=== PATIENT | female | born 1985 | race African-American/Black ===

== ENCOUNTER 2016-09-21 10:21 | Emergency (ER) | payer MEDICAID ==
[~2016-09-21] VITALS: Ht 177.8 cm; Wt 122.5 kg
[2016-09-21 10:41] VITALS: BP 145/83
[2016-09-21] MEDS ORDERED: IBUPROFEN 800 MG TAB PO ONE (11:30)
== END 2016-09-21 12:13 | disposition home or self-care (01) ==
LOC: ER 10:23
DX: S60.212A Contusion of left wrist, initial encounter (principal); X50.0XXA Overexertion from strenuous movement or load, initial encounter; Y93.89 Activity, other specified; Y99.8 Other external cause status; Y92.89 Other specified places as the place of occurrence of the external cause
CPT/HCPCS: 73110; 73130

== ENCOUNTER 2021-01-28 22:36 | Emergency (ER) | payer MEDICAID ==
[~2021-01-28] VITALS: Ht 175.3 cm; Wt 111.1 kg
[2021-01-29 00:30] VITALS: BP 156/94
== END 2021-01-29 04:30 | disposition home or self-care (01) ==
LOC: ER 22:36
DX: S83.91XA Sprain of unspecified site of right knee, initial encounter (principal); E66.9 Obesity, unspecified; Z68.36 Body mass index [BMI] 36.0-36.9, adult; X58.XXXA Exposure to other specified factors, initial encounter; Y93.89 Activity, other specified; Y92.89 Other specified places as the place of occurrence of the external cause; Y99.8 Other external cause status
CPT/HCPCS: 73562; 93971

== ENCOUNTER 2024-01-16 22:38 | Emergency (ER) | payer MEDICAID ==
[~2024-01-16] VITALS: Ht 180.3 cm; Wt 125.9 kg
[2024-01-16 23:35] LABS: Basophils # (auto) 0.1 10 ^3/uL (0-0.2); Basophils % (auto) 0.9 % (0.0-2.0); Eosinophils # (auto) 0.1 10 ^3/uL (0-0.8); Eosinophils % (auto) 1.1 % (0.0-7.0); Hematocrit 38.7 % (36.0-46.0); Hemoglobin 13.3 g/dL (12.2-16.2); Lymphocytes # (auto) 2.8 10 ^3/uL (0.4-5.4); Lymphocytes % (auto) 24.7 % (10.0-50.0); Mean Corpuscular Hemoglobin 32.8 pg (28.0-32.0); Mean Corpuscular Hgb Conc. 34.4 g/dL (32.0-36.0); Mean Corpuscular Volume 95.3 fL (80.0-100.0); Monocytes # (auto) 1.1 10 ^3/uL (0-1.3); Monocytes % (auto) 9.7 % (0.0-12.0); Neutrophils # (auto) 7.2 10 ^3/uL (1.6-8.6); Neutrophils % (auto) 63.6 % (37.0-80.0); Nucleated Red Blood Cells % 0.1 %; Platelet Count (auto) 258 10^3/uL (140-450); Red Blood Cells 4.06 10^6/uL (4.0-5.20); Red Cell Distribution Width 14.1 % (11.8-14.3); White Blood Cell 11.4 10^3/uL (4.4-10.8)
--- NOTE | 2024-01-16 23:35 | ED.PDOC ---
GI ASSESSMENT HPI Comments 38-year-old female who came to ER for abdominal pain. Patient states for the past 4 days, she has been having intermittent episodes of suprapubic abdominal pain associated bouts of nausea and vomiting. States lower abdominal pain will radiate to her back area. She denies any urinary symptoms such as dysuria or gross hematuria. Chief Complaint: Abdominal Pain Time Seen by MD: 23:35 Primary Care Provider: ZAHIDA Reviewed Notes: Nurses Notes Allergies: Coded Allergies: NO KNOWN ALLERGIES (Unverified , 04/17/14) Information Source: Patient Mode of Arrival: Ambulatory Timing: Days Duration: Since onset Prehospital treatment: None Quality: Aching Vomitus: Watery Stool: Normal Severity: Moderate Recent: None Recent Hx of: Abdominal Surgery Pain Location: Suprapubic Modifying Factors: Nothing Associated sign and symptoms: Nausea, Vomiting, Abdominal Pain Past Medical History PAST MEDICAL HISTORY: Denies Surgical History: [employer]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 Family History Family History: Reviewed,noncontributory to illness Social History Smoker: Non-Smoker Alcohol: Denies ETOH Use Drugs: Denies Drug Use Lives In: Home Constitutional: denies: chills, diaphoresis, fatigue, fever, malaise, sweats, weakness, others EENTM: denies: blurred vision, double vision, ear bleeding, ear discharge, ear drainage, ear pain, ear ringing, eye pain, eye redness, hearing loss, mouth pain, mouth swelling, nasal discharge, nose bleeding, nose congestion, nose pain, photophobia, tearing, throat pain, throat swelling, voice changes, others Respiratory: denies: cough, hemoptysis, orthopnea, SOB at rest, shortness of breath, SOB with excertion, stridor, wheezing, others Cardiovascular: denies: chest pain, dizzy spells, diaphoresis, Dyspnea on exertion, edema, irregular heart beat, left arm pain, lightheadedness, palpitations, PND, syncope, others Gastrointestinal: reports: abdominal pain, nausea, vomiting; denies: abdomen distended, blood streaked bowels, constipated, diarrhea, dysphagia, difficulty swallowing, hematemesis, melena, poor appetite, poor fluid intake, rectal bleeding, rectal pain, others Genitourinary: denies: abnormal vagina bleeding, burning, dyspareunia, dysuria, flank pain, frequency, hematuria, incontinence, pain, , vagina discharge, urgency, others Neurological: denies: dizziness, fainting, headache, left sided numbness, left sided weakness, numbness, paresthesia, pre-existing deficit, right sided numbness, right sided weakness, seizure, speech problems, tingling, tremors, weakness, others Musculoskeletal: reports: back pain; denies: gout, joint pain, joint swelling, muscle pain, muscle stiffness, neck pain, others Integumetry: denies: bruises, change in color, change in hair/nails, dryness, laceration, lesions, lumps, rash, wounds, others Allergic/Immunocompromised: denies: Difficulty Healing, Frequent Infections, Hives, Itching, others Hematologic/Lymphatic: denies: anemia, blood clots, easy bleeding, easy bruising, swollen glands, others Endocrine: denies: excessive hunger, excessive sweating, excessive thirst, excessive urination, flushing, intolerance to cold, intolerance to heat, unexplained weight gain, unexplained weight loss, others Psychiatric: denies: anxiety, bipolar disorder, depression, hopeless, panic disorder, schizophrenia, sleepless, suicidal, others Physical Exam General Appearance: No Apparent Distress, Normal HEENT: Normal ENT Inspection, Pharynx Normal, TMs Normal Neck: Full Range of Motion, Non-Tender, Normal, Normal Inspection Respiratory: Chest Non-Tender, Lungs Clear, No Accessory Muscle Use, No Respiratory Distress, Normal Breath Sounds Cardiovascular: No Edema, No JVD, No Murmur, No Gallop, Normal Peripheral Pulses, Regular Rate/Rhythm Breast Exam: Deferred Gastrointestinal: No Organomegaly, No Pulsatile Mass, Normal Bowel Sounds, Soft, Suprapubic, Tenderness Genitalia: Deferred Pelvic: Deferred Rectal: Deferred Extremities: No calf tenderness, Normal capillary refill, Normal inspection, Normal range of motion, Non-tender, No pedal edema Musculoskeletal : Apperance: Normal Neurologic: Alert, speech therapist II-XII nml as Tested, No Motor Deficits, Normal Affect, Normal Mood, No Sensory Deficits Cerebellar Function: Normal Reflexes: Normal Skin: Dry, Normal Color, Warm Lymphatic: No Adenopathy Was a procedure done? Was a procedure done?: No GI differential Dx Differential Diagnosis: Diverticular disease, Gastritis/PUD, Gastroenteritis, Pancreatitis, UTI, Urolithiasis X-Ray, Labs, Meds, VS Vital Signs Date Time Temp Pulse Resp B/P (MAP) Pulse Ox O2 Delivery O2 Flow Rate FiO2 01/17/24 00:33 97.4 95 16 154/74 (100) 100 97.4 01/16/24 23:06 98.6 105 16 153/79 (103) 98 Lab Test 01/16/24 23:25 01/16/24 23:07 Range/Units White Blood Count 11.4 H 4.4-10.8 10^3/uL Red Blood Count 4.06 4.0-5.20 10^6/uL Hemoglobin 13.3 12.2-16.2 g/dL Hematocrit 38.7 36.0-46.0 % Mean Corpuscular Volume 95.3 80.0-100.0 fL Mean Corpuscular Hemoglobin 32.8 H 28.0-32.0 pg Mean Corpuscular Hemoglobin Concent 34.4 32.0-36.0 g/dL Red Cell Distribution Width 14.1 11.8-14.3 % Platelet Count 258 140-450 10^3/uL Mean Platelet Volume 8.2 6.9-10.8 fL Neutrophils (%) (Auto) 63.6 37.0-80.0 % Lymphocytes (%) (Auto) 24.7 10.0-50.0 % Monocytes (%) (Auto) 9.7 0.0-12.0 % Eosinophils (%) (Auto) 1.1 0.0-7.0 % Basophils (%) (Auto) 0.9 0.0-2.0 % Neutrophils # (Auto) 7.2 1.6-8.6 10 ^3/uL Lymphocytes # (Auto) 2.8 0.4-5.4 10 ^3/uL Monocytes # (Auto) 1.1 0-1.3 10 ^3/uL Eosinophils # (Auto) 0.1 0-0.8 10 ^3/uL Basophils # (Auto) 0.1 0-0.2 10 ^3/uL Nucleated Red Blood Cells 0.1 % Sodium Level 138 136-145 mmol/L Potassium Level 3.8 3.5-5.1 mmol/L Chloride Level 107 98-107 mmol/L Carbon Dioxide Level 28 20-31 mmol/L Anion Gap 3 L 5-15 Blood Urea Nitrogen 12 9-23 mg/dL Creatinine 1.05 H 0.550-1.02 mg/dL Glomerular Filtration Rate Calc 69 >90 mL/min BUN/Creatinine Ratio 11.4 10.0-20.0 Serum Glucose 118 H 74-106 mg/dL Calcium Level 9.7 8.7-10.4 mg/dL Urine Color Yellow Yellow Urine Clarity Turbid H Clear Urine pH 6.0 5.0-9.0 Urine Specific [place] 1.048 H 1.001-1.035 Urine Protein 1+ H Negative Urine Ketones 1+ H Negative Urine Blood Negative Negative /uL Urine Nitrite Negative Negative Urine Bilirubin Negative Negative Urine Urobilinogen 3 H Negative mg/dL Urine Leukocyte Esterase 2+ Negative /uL Urine RBC 10 0 - 4 /hpf Urine WBC 13 0 - 5 /hpf Urine Squamous Epithelial Cells Mod <5 /hpf Urine Bacteria Few H None Seen /hpf Urine Mucus Few None Seen Urine Glucose Normal Normal mg/dL Urine Test Positive Negative Current Medications Medications (Trade) Dose Ordered Sig/Anusha Route Start Time Stop Time Status Last Admin Sodium Chloride 1,000 ml @ 1,000 mls/hr Q1H ONCE IV 01/16/24 23:30 01/17/24 00:29 DC 01/17/24 00:22 Famotidine (Pepcid Injection) 20 mg ONCE ONCE IV 01/16/24 23:30 01/16/24 23:31 DC 01/17/24 00:22 Time of 1ST Reevaluation: 23:33 Reevaluation 1ST: Unchanged Patient Education/Counseling: Diagnosis, Treatment Family Education/Counseling: No Family Present Departure 1 Departure Time of Disposition: 00:37 (Patient with a positive test we will discharge patient home) Impression: Primary Impression: Qualified Codes: Z3A.01 - Less than 8 weeks gestation of Disposition: HOME / SELF CARE / HOMELESS Condition: Stable Referrals: RENAY LEE DO Additional Instructions: You are . You were referred to our [employer]LECTRICAL [employer]. Please call for an appointment. If your symptoms worsen or you have any other concerns then please return to the ER. Discharged With: Self Critical Care Note Critical Care Time?: No Stability Stability form required: No Heart Score Heart Score: Heart Score Response (Comments) Value History N/A 0 EKG N/A 0 Age N/A 0 Risk Factors N/A 0 Troponin N/A 0 Total 0 I personally scribed for CHATA HOUSTON MD ([email or web address]) on 01/16/24 at 23:35. Electronically submitted by Primo King ([email or web address]). CHATA HOUSTON MD Jan 16, 2024 23:35
[2024-01-16 23:42] LABS: Urine Bacteria FEW /hpf (None Seen); Urine Blood Negative /uL (Negative); Urine Clarity Turbid (Clear); Urine Color Yellow (Yellow); Urine Mucus FEW (None Seen); Urine Protein, UAD 1+ (Negative); Urine Specific Gravity 1.048 (1.001-1.035); Urine Urobilinogen 3 mg/dL (Negative); Urine WBC 13 /hpf (0 - 5)
[2024-01-16 23:49] LABS: Chloride 107 mmol/L (98-107); Potassium 3.8 mmol/L (3.5-5.1); Sodium 138 mmol/L (136-145)
[2024-01-16 23:50] LABS: Anion Gap 3 (5-15); Calcium 9.7 mg/dL (8.7-10.4); Carbon Dioxide 28 mmol/L (20-31)
[2024-01-16 23:55] LABS: BUN/Creatinine Ratio 11.4 (10.0-20.0); Blood Urea Nitrogen 12 mg/dL (9-23); Glucose 118 mg/dL (74-106)
[2024-01-17] MEDS: SODIUM CHLORIDE 0.9% 1,000 ML IV ONE (00:22)
[2024-01-17] MEDS: ONDANSETRON HCL 4 MG/2 ML VIAL IV ONE (00:22)
[2024-01-17] MEDS: FAMOTIDINE (10MG/ML) 2ML VL IV ONE (00:22)
[2024-01-17 00:33] VITALS: BP 154/74; PULSE 95; RESP 16; TEMP 97.4; O2SAT 100
== END 2024-01-17 01:07 | disposition home or self-care (01) ==
LOC: ER 22:38
DX: Z34.81 Encounter for supervision of other normal pregnancy, first trimester (principal); Z3A.01 Less than 8 weeks gestation of pregnancy; Z98.890 Other specified postprocedural states
CPT/HCPCS: 36415; 80048; 81001; 81025; 85025; 96361; 96374; 99283; J3490; J7030; J2405